=== PATIENT | female | born 1950 | race Caucasian/White ===

== ENCOUNTER 2016-05-21 15:13 | Emergency (ER) | payer BC ==
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
[2016-05-21] MEDS ORDERED: HYDROMORPHONE HCL 1 MG/ML CPJ IM ONE ×2 (15:45→15:47)
== END 2016-05-21 16:33 | disposition home or self-care (01) ==
LOC: ER 15:13
DX: G89.29 Other chronic pain (principal); M25.552 Pain in left hip
CPT/HCPCS: 99283 ×2; 96372; J1170

== ENCOUNTER 2016-07-11 00:39 | Emergency (ER) | payer BC ==
[2016-07-11] MEDS ORDERED: HYOSCYAMINE SULFATE ODT 0.125 MG TAB.SUBL SL ONE (00:42)
[2016-07-11] MEDS ORDERED: ONDANSETRON 4 MG ODT TABLET SL ONE (01:03)
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
[2016-07-11 01:28] LABS: INFLUENZA A NEGATIVE (NEGATIVE); INFLUENZA B NEGATIVE (NEGATIVE)
[2016-07-11] MEDS ORDERED: LORAZEPAM 2 MG/ML VIAL IV ONE (01:40)
[2016-07-11] MEDS ORDERED: DIAZEPAM 5 MG/1 ML TUBX IVP ONE (01:45)
[2016-07-11] MEDS: ONDANSETRON HCL IV 4 MG/2 ML VIAL IVP ONE ×2 (01:48→02:15)
[2016-07-11 02:10] LABS: BASO % 0.3 % (0-6); HEMATOCRIT 37.8 % (35.0-47.0); LYMPH % 9.6 % (16-45); MEAN CELL VOLUME 86.1 fl (81-97); MEAN CORPUSCULAR HEMOGLOBIN 29.6 pg (27-33); MEAN CORPUSCULAR HGB CONC 34.4 g/dl (32-36); MEAN PLATELET VOLUME 10.4 fl (7.4-10.4); PLATELET COUNT 236 K/uL (130-400); RED BLOOD COUNT 4.39 M/uL (3.80-5.40); RED CELL DISTRIBUTION WIDTH 13.9 % (11.5-14.5); WHITE BLOOD COUNT W/O DIFF 14.8 K/uL (4.2-12.2)
[2016-07-11 02:11] LABS: URINE APPEARANCE CLEAR; URINE BILIRUBIN NEGATIVE (NEGATIVE); URINE BLOOD SMALL (NEGATIVE); URINE COLOR YELLOW; URINE GLUCOSE (UA) NEGATIVE (NEGATIVE); URINE KETONE 15 mg/dL (NEGATIVE); URINE LEUKOCYTE ESTERASE NEGATIVE (NEGATIVE); URINE NITRITE NEGATIVE (NEGATIVE); URINE PROTEIN TRACE (NEGATIVE); URINE UROBILINOGEN 0.2 E.U./dL (0.20 - 1.00)
[2016-07-11 02:13] LABS: URINE BACTERIA NONE SEEN; URINE EPITHELIAL CELLS 0 - 2 (FEW); URINE WBC 0 - 2 (0-2/hpf)
[2016-07-11] MEDS ORDERED: PROMETHAZINE HCL 25 MG in 0.9 % SODIUM CHLORIDE 100ML 50 ML IVP ONE (02:18)
[2016-07-11] MEDS ORDERED: ASPIRIN 81 MG CHEWABLE TABLET PO ONE (02:18)
[2016-07-11 02:19] LABS: ALB/GLOB RATIO 1.7 (1.1-1.8); ALKALINE PHOSPHATASE 101 U/L (38-126); ALT/SGPT 29 U/L (9-52); AST/SGOT 19 U/L (14-36); BILIRUBIN,TOTAL 0.82 mg/dL (0.2-1.3); BLOOD UREA NITROGEN 10 mg/dL (7-17); CREATININE 0.6 mg/dL (0.52-1.04); EST GLOMERULAR FILTRATION RATE > 60 ml/min; GLUCOSE,RANDOM 134 mg/dL (70-110); LIPASE 32 U/L (23-300)
[2016-07-11 02:40] LABS: CREATINE PHOSPHOKINASE 35 U/L (30-135)
[2016-07-11 02:46] LABS: CKMB 0.2 ug/L (0-6); TROPONIN I < 0.012 ng/mL (0.00-0.034)
[2016-07-11] MEDS ORDERED: MORPHINE SULFATE 5 MG/ML PFS IVP ONE (03:14)
== END 2016-07-11 04:10 | disposition short-term general hospital (02) ==
LOC: ER 00:39
DX: R07.9 Chest pain, unspecified (principal); M79.1 Myalgia; R94.31 Abnormal electrocardiogram [ECG] [EKG]; R11.2 Nausea with vomiting, unspecified; R19.7 Diarrhea, unspecified; R06.02 Shortness of breath; I10 Essential (primary) hypertension; Z87.891 Personal history of nicotine dependence
CPT/HCPCS: 99285 ×2; 96374; 96375; 82550; 83690; 82553; 84484; 80053; 81001; 87400; 85027; 93005; 93010; J1980; J2405; J2270; J2550; J3360

== ENCOUNTER 2016-09-24 03:52 | Emergency (ER) | payer BC ==
[2016-09-24] MEDS ORDERED: 0.9 % SODIUM CHLORIDE 1,000 ML BAG IV ONE ×3 (04:11→05:28)
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
[2016-09-24] MEDS ORDERED: LORAZEPAM 2 MG/ML VIAL IV ONE (04:31)
[2016-09-24] MEDS ORDERED: ONDANSETRON HCL IV 4 MG/2 ML VIAL IVP ONE (04:34)
[2016-09-24 04:38] LABS: HEMATOCRIT 42.2 % (35.0-47.0); MEAN CELL VOLUME 85.1 fl (81-97); MEAN CORPUSCULAR HEMOGLOBIN 28.2 pg (27-33); MEAN CORPUSCULAR HGB CONC 33.2 g/dl (32-36); MEAN PLATELET VOLUME 10.9 fl (7.4-10.4); PLATELET COUNT 354 K/uL (130-400); RED BLOOD COUNT 4.96 M/uL (3.80-5.40); RED CELL DISTRIBUTION WIDTH 13.4 % (11.5-14.5); WHITE BLOOD COUNT W/O DIFF 16.8 K/uL (4.2-12.2)
[2016-09-24 04:47] LABS: ALBUMIN 4.9 gm/dL (3.5-5.0); ALKALINE PHOSPHATASE 132 U/L (38-126); ALT/SGPT 21 U/L (9-52); ANION GAP 13.7 (7-16); AST/SGOT 23 U/L (14-36); BILIRUBIN,TOTAL 1.03 mg/dL (0.2-1.3); BLOOD UREA NITROGEN 21 mg/dL (7-17); CARBON DIOXIDE 26.3 mmol/L (22-30); CREATININE 0.9 mg/dL (0.52-1.04); EST GLOMERULAR FILTRATION RATE > 60 ml/min; GLUCOSE,RANDOM 146 mg/dL (70-110); LIPASE 122 U/L (23-300); TOTAL PROTEIN 8.3 gm/dL (6.3-8.2)
[2016-09-24 04:58] LABS: URINE APPEARANCE CLEAR; URINE BILIRUBIN MODERATE (NEGATIVE); URINE BLOOD LARGE (NEGATIVE); URINE COLOR YELLOW; URINE GLUCOSE (UA) NEGATIVE (NEGATIVE); URINE KETONE 40 mg/dL (NEGATIVE); URINE LEUKOCYTE ESTERASE NEGATIVE (NEGATIVE); URINE NITRITE NEGATIVE (NEGATIVE)
[2016-09-24 05:01] LABS: URINE BACTERIA NONE SEEN; URINE EPITHELIAL CELLS 0 - 2 (FEW); URINE PROTEIN 300 mg/dL (NEGATIVE); URINE WBC 0 - 2 (0-2/hpf)
[2016-09-24 05:04] LABS: AMPHETAMINE SCREEN URINE NOT DETECTED; BARBITURATE SCREEN URINE NOT DETECTED; BENZODIAZEPINE SCREEN URINE DETECTED; COCAINE SCREEN URINE NOT DETECTED; METHADONE SCREEN URINE NOT DETECTED; METHAMPHETAMINE SCREEN NOT DETECTED; OPIATE SCREEN URINE DETECTED; OXYCODONE SCREEN URINE NOT DETECTED; PHENCYCLIDINE SCREEN URINE NOT DETECTED; PROPOXYPHENE SCREEN URINE NOT DETECTED; THC SCREEN URINE DETECTED; TRICYCLIC ANTIDEPRESSANT SCRN NOT DETECTED
[2016-09-24] MEDS ORDERED: DIAZEPAM 5 MG/1 ML TUBX IVP ONE (05:28)
[2016-09-24] MEDS ORDERED: MORPHINE SULFATE 5 MG/ML PFS IVP ONE (06:13)
== END 2016-09-24 07:10 | disposition short-term general hospital (02) ==
LOC: ER 03:52
DX: R79.89 Other specified abnormal findings of blood chemistry (principal); E86.0 Dehydration; G43.A1 Cyclical vomiting, in migraine, intractable; I10 Essential (primary) hypertension; Z87.891 Personal history of nicotine dependence
CPT/HCPCS: 99285 ×2; 96374; 96375; 83690; 80076; 82553; 84484; 80048; 81001; 80305; 85027; 93005; 93010; J2405; J2060; J2270; J3360; J7030

== ENCOUNTER 2017-05-10 12:32 | Emergency (ER) | payer BC, MEDICARE ==
[2017-05-10] MEDS ORDERED: ONDANSETRON HCL IV 4 MG/2 ML VIAL IV ONE (13:16)
[2017-05-10] MEDS ORDERED: 0.9 % SODIUM CHLORIDE 1,000 ML BAG IV ONE (13:16)
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
[2017-05-10 13:57] LABS: BASO % 0.6 % (0-6); EOS % 1.3 % (0-6); GRAN % 57.4 % (47-80); HEMATOCRIT 35.8 % (35.0-47.0); HEMOGLOBIN 11.6 gm/dl (11.6-16.0); LYMPH % 34.5 % (16-45); MEAN CELL VOLUME 86.9 fl (81-97); MEAN CORPUSCULAR HEMOGLOBIN 28.2 pg (27-33); MEAN CORPUSCULAR HGB CONC 32.4 g/dl (32-36); MEAN PLATELET VOLUME 10.4 fl (7.4-10.4); MONO % 6.2 % (0-9); PLATELET COUNT 261 K/uL (130-400); RED BLOOD COUNT 4.12 M/uL (3.80-5.40); RED CELL DISTRIBUTION WIDTH 13.7 % (11.5-14.5); WHITE BLOOD COUNT W/O DIFF 6.8 K/uL (4.2-12.2)
[2017-05-10] MEDS ORDERED: MORPHINE SULFATE 5 MG/ML PFS IVP ONE ×2 (14:39→15:32)
[2017-05-10 14:52] LABS: URINE APPEARANCE CLEAR; URINE BILIRUBIN NEGATIVE (NEGATIVE); URINE BLOOD NEGATIVE (NEGATIVE); URINE COLOR YELLOW; URINE GLUCOSE (UA) NEGATIVE (NEGATIVE); URINE KETONE NEGATIVE (NEGATIVE); URINE LEUKOCYTE ESTERASE NEGATIVE (NEGATIVE); URINE NITRITE NEGATIVE (NEGATIVE); URINE PROTEIN NEGATIVE (NEGATIVE); URINE UROBILINOGEN 0.2 E.U./dL (0.20 - 1.00)
[2017-05-10 15:03] LABS: BLOOD UREA NITROGEN 17 mg/dL (8-23)
[2017-05-10 15:04] LABS: CREATININE 0.8 mg/dL (0.5-0.9); EST GLOMERULAR FILTRATION RATE > 60 mL/min
[2017-05-10 15:06] LABS: GLUCOSE,RANDOM 97 mg/dL (74-109)
--- NOTE | 2017-05-10 20:51 | CT SCAN REPORT ---
EXAM: CT SCAN ABDOMEN/PELVIS WO CONTRAST HISTORY: RIGHT FLANK PAIN FOR A DAY, 30 LB WEIGHT LOSS IN A YEAR. HYSTERECTOMY. TECHNIQUE: Axial CT scan of the abdomen and pelvis performed without oral or IV contrast. COMPARISON: CT abdomen and pelvis 11/14/13. FINDINGS: Surgical clips in the gallbladder fossa as before consistent with cholecystectomy. Uterus not identified consistent with the surgical history as well. No intrarenal calculi identified on either side. There is no hydronephrosis or hydroureter on the left with the left ureter demonstrating no ureteral calculus and no bladder calculus evident. On the right, there is very minimal, if any, hydronephrosis but there is mild hydroureter on the right, which leads to a calcification in the right mid ureter measuring approximately 4.3 mm in diameter and on the coronal image measures about 6.2 mm in length consistent with a right mid ureteral calculus causing relatively mild obstruction on the right at this point. Distal to this, no additional or distal right ureteral calculus seen. Evaluation of the bowel and viscera is very limited without oral or IV contrast. Given this limitation, no definite hepatic, splenic, adrenal, pancreatic, or renal mass identified. No appendicitis identified. Some calcifications in the subcutaneous tissues of the upper gluteal regions bilaterally also noted previously and probably representing injection granulomas. No free intraperitoneal air or free intraperitoneal fluid identified. Prominent facet joint arthropathy in the lower lumbar spine. Multilevel degenerative disc disease in the lumbar spine as well as in the lower thoracic spine. There is a sharply demarcated tubular radiolucency extending from the left femoral head through the femoral neck and a rounded radiolucency in the greater trochanter on the left with loss of the overlying cortex, likely all postoperative in nature related to a prior intramedullary nikolai and compression screw that has subsequently been removed. The full inferior extent of this well-circumscribed defect in the upper femoral shaft is not included on this pelvis CT. If there is no history of prior orthopedic hardware with subsequent removal in the left hip, plain-film series would be suggested. IMPRESSION: 1. APPEARANCE CONSISTENT WITH A RIGHT MID URETERAL CALCULUS DESCRIBED ABOVE WITH ASSOCIATED MILD HYDROURETER BUT WITH VERY LITTLE, IF ANY, ASSOCIATED HYDRONEPHROSIS ON THE RIGHT. 2. NO OTHER URINARY TRACT CALCULI IDENTIFIED. 3. POST-OP CHOLECYSTECTOMY AND HYSTERECTOMY. 4. DEGENERATIVE CHANGE IN THE SPINE. PROBABLE POST-OP CHANGE LEFT HIP, DESCRIBED ABOVE. JOB NUMBER: [id number] [facility]
== END 2017-05-10 16:10 | disposition home or self-care (01) ==
LOC: ER 12:32
DX: N20.1 Calculus of ureter (principal); Z87.442 Personal history of urinary calculi; I10 Essential (primary) hypertension; Z87.891 Personal history of nicotine dependence
CPT/HCPCS: 74176; 80048; 81003; 85025; 86140; 96374; 96375; 96376; 99284; J2405; J7030

== ENCOUNTER 2017-06-14 12:11 | Day surgery (SDC) | payer BC, MEDICARE ==
[2017-06-14] MEDS ORDERED: FENTANYL PF 100MCG/2ML VIAL IV ONE (12:12)
[2017-06-14] MEDS ORDERED: LIDOCAINE 2% MDV (20MG/ML) 20ML VIAL IV ONE (12:12)
[2017-06-14] MEDS ORDERED: PROPOFOL 10 MG/ML VIAL IV ONE (12:12)
--- NOTE | 2017-06-17 09:10 | Operative Note ---
DATE OF SURGERY: 06/14/2017 SURGEON: Kenzie Cummings MD OPERATION: 1. ESOPHAGOGASTRODUODENOSCOPY. 2. COLONOSCOPY. INDICATIONS: This is a 67-year-old female with history of epigastric pain and colon polyps who presented for both esophagogastroduodenoscopy and colonoscopy. POSTOPERATIVE DIAGNOSES: 1. Normal esophagus. 2. Mild gastritis. 3. Normal duodenum. 4. Normal colon with no neoplastic or ulcerative lesions. ANESTHESIA: Sedation is per Anesthesia. Pulse oximetry was monitored throughout the procedure to maintain O2 saturation of 90% or greater. Supplemental oxygen was administered via nasal cannula. Cardiac and vital signs were monitored throughout the duration of the procedure, and they were stable. The procedures of esophagogastroduodenoscopy and colonoscopy and risks and alternatives of the procedures, including the risk of bleeding and perforation, among others, were explained to the patient who voiced understanding and agreed to have the procedures done. Physical examination was performed, and the patient was found stable for sedation. PROCEDURE: The patient was placed in the left lateral position. Sedation was initiated. A plastic bite block was inserted into the oral cavity. The Olympus [id number] gastroscope was introduced into the oral cavity and advanced to the proximal esophagus without difficulty. The esophageal mucosa was carefully examined upon introduction of the gastroscope. The proximal and mid and distal esophageal mucosa appeared normal. The gastroscope was then advanced into the stomach, and surveillance of the stomach revealed normal gastric fundus, body, and antrum. The gastroscope was then advanced to the descending duodenum without difficulty. The duodenal bulb and descending duodenum appeared normal. The gastroscope was then withdrawn while carefully examining the gastric and esophageal mucosa. No other lesions noted. Multiple duodenal and gastric biopsies were obtained. The patient remained with stable vital signs and was repositioned for colonoscopy. Digital rectal exam was performed and showed some mild external hemorrhoids with no palpable rectal masses. An Olympus PCF-180AL colonoscope was then inserted into the rectum under direct visualization. It was advanced to the cecum without difficulty. The ileocecal valve and appendiceal orifice were identified and photographed. The colonic mucosa was carefully examined upon introduction of the colonoscope. There were no lesions noted. The colonoscope was then withdrawn while carefully examining the colonic mucosal surfaces. No lesions were noted. In the rectum, retroflexion was performed and grade 1 internal hemorrhoids were noted. The colonoscope was then withdrawn and the procedures were terminated. The patient tolerated the procedures well without any immediate complications. He remained with stable vital signs and was transferred to the recovery room. RECOMMENDATIONS: 1. The patient should continue on a high-fiber diet. 2. The patient is to have a repeat colonoscopy for surveillance in 5 years. Thank you for allowing me to participate in the care of your patient. CC: Zaida MCNULTY
== END 2017-06-14 15:00 | disposition home or self-care (01) ==
LOC: HOP 12:11
PROVIDERS: ATTEND Internal Medicine Gastroenterology
DX: R10.13 Epigastric pain (principal); Z86.010 Personal history of colon polyps; K29.70 Gastritis, unspecified, without bleeding; I10 Essential (primary) hypertension; E78.00 Pure hypercholesterolemia, unspecified; K64.0 First degree hemorrhoids
CPT/HCPCS: 43235; 00813; G0105; J3010

== ENCOUNTER 2017-08-16 15:52 | Emergency (ER) | payer BC, MEDICARE ==
[2017-08-16] MEDS ORDERED: 0.9 % SODIUM CHLORIDE 1000ML 1,000 ML IV PRN (17:23)
[2017-08-16 17:27] LABS: URINE APPEARANCE CLEAR; URINE BILIRUBIN NEGATIVE (NEGATIVE); URINE BLOOD NEGATIVE (NEGATIVE); URINE COLOR YELLOW; URINE GLUCOSE (UA) NEGATIVE (NEGATIVE); URINE KETONE TRACE (NEGATIVE); URINE LEUKOCYTE ESTERASE NEGATIVE (NEGATIVE); URINE NITRITE NEGATIVE (NEGATIVE); URINE PROTEIN NEGATIVE (NEGATIVE); URINE UROBILINOGEN 0.2 E.U./dL (0.20 - 1.00)
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
[2017-08-16] MEDS ORDERED: HYDROMORPHONE HCL 2 MG/ML VIAL IVP ONE (17:32)
[2017-08-16] MEDS ORDERED: ONDANSETRON HCL IV 4 MG/2 ML VIAL IVP ONE (17:35)
[2017-08-16 18:51] LABS: HEMATOCRIT 39.3 % (35.0-47.0); HEMOGLOBIN 12.8 gm/dl (11.6-16.0); MEAN CELL VOLUME 91.2 fl (81-97); MEAN CORPUSCULAR HEMOGLOBIN 29.7 pg (27-33); MEAN CORPUSCULAR HGB CONC 32.6 g/dl (32-36); MEAN PLATELET VOLUME 10.1 fl (7.4-10.4); PLATELET COUNT 227 K/uL (130-400); RED BLOOD COUNT 4.31 M/uL (3.80-5.40); RED CELL DISTRIBUTION WIDTH 13.9 % (11.5-14.5)
[2017-08-16 19:01] LABS: BLOOD UREA NITROGEN 18 mg/dL (8-23); CREATININE 0.8 mg/dL (0.5-0.9); EST GLOMERULAR FILTRATION RATE > 60 mL/min
[2017-08-16 19:02] LABS: TOTAL PROTEIN 6.9 g/dL (6.6-8.7)
[2017-08-16 19:04] LABS: GLUCOSE,RANDOM 117 mg/dL (74-109); PLATELET ESTIMATE NORMAL (NORMAL)
[2017-08-16 19:06] LABS: ALT/SGPT 21 U/L (<33)
[2017-08-16 19:07] LABS: ALBUMIN 4.3 g/dL (4.0-5.0); ALKALINE PHOSPHATASE 113 U/L (35-104); AST/SGOT 23 U/L (10.0-35.0); LIPASE 14 U/L (13-60)
[2017-08-16 19:08] LABS: BILIRUBIN,DIRECT < 0.2 mg/dL (0-0.3)
[2017-08-16] MEDS ORDERED: HYDROCODONE/APAP 7.5/325MG TABLET PO ONE (19:56)
--- NOTE | 2017-08-18 12:16 | CT SCAN REPORT ---
DATE: 08/16/2017. EXAM: CT SCAN OF THE ABDOMEN AND PELVIS. HISTORY: The patient has left-sided flank pain. TECHNIQUE: Serial axial CT scan of the abdomen and pelvis was performed at 2.5 mm intervals from the dome of the diaphragm of of the pubic symphysis without the use of intravenous or oral contrast. COMPARISON: Comparison CT scan of the abdomen and pelvis dated 05/10/2017 is provided. FINDINGS: The lung windows of the lung bases demonstrate no CT evidence of a focal infiltrate or pleural effusion. The visualized heart size and contour is within normal limits. The liver, spleen, bilateral adrenal glands, and pancreas are unremarkable. Cholecystectomy clips are noted within the right upper quadrant of the abdomen. The bilateral kidneys demonstrate no CT evidence of hydronephrosis or hydroureter. There is cortical contour variation of the right kidney which may result in chronic infections. No renal calculi are noted. Within the mid right ureter, there are findings suspicious for a 2.5 mm calculus which is unchanged in position with respect to the prior CT scan. Again this calculus does not create significant hydroureter. The contour and caliber of the noncontrasted abdominal aorta is within normal limits. There is no CT evidence of retroperitoneal, pelvic, or inguinal lymphadenopathy. The bowel gas pattern is nonspecific and nonobstructive. There is no CT evidence of free intraperitoneal fluid or free intraperitoneal air. Calcifications are identified in the bilateral gluteal subcutaneous fat which may be related to prior injections. This finding is unchanged with respect to the prior CT scan. The urinary bladder is decompressed. The uterus is absent. The bone windows demonstrate lucency within the left femoral head and neck and proximal femoral diaphysis which is unchanged with respect to the prior CT scan. This finding is likely the result of removal of hardware. A single epidural cyst is identified within the right F3 neural foramen. Multilevel advanced degenerative disc disease of the lumbar spine is noted. IMPRESSION: 1. A 2.5 MM CALCULUS WITHIN THE MID RIGHT URETER IS UNCHANGED IN LOCATION WITH RESPECT TO THE PRIOR CT SCAN. THIS CREATES NO SIGNIFICANT HYDRONEPHROSIS OR HYDROURETER. 2. OTHERWISE NO CT EVIDENCE OF AN ACUTE INTRAABDOMINAL PROCESS. JOB NUMBER: [id number] [facility]
== END 2017-08-16 20:15 | disposition home or self-care (01) ==
LOC: ER 15:52
DX: R10.31 Right lower quadrant pain (principal); R10.32 Left lower quadrant pain; R11.11 Vomiting without nausea; R07.81 Pleurodynia; Z87.891 Personal history of nicotine dependence; Z87.442 Personal history of urinary calculi
CPT/HCPCS: 99284 ×2; 96374; 96375; 83690; 80076; 80048; 81003; 85027; 74176; J2405; J1170

== ENCOUNTER 2017-09-17 15:08 | Emergency (ER) | payer BC ==
[2017-09-17] MEDS ORDERED: ONDANSETRON HCL IV 4 MG/2 ML VIAL IVP ONE (15:34)
[2017-09-17] MEDS ORDERED: HYDROMORPHONE HCL 2 MG/ML VIAL IVP ONE (15:35)
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
[2017-09-17 16:59] LABS: URINE APPEARANCE CLEAR; URINE BILIRUBIN NEGATIVE (NEGATIVE); URINE BLOOD NEGATIVE (NEGATIVE); URINE COLOR YELLOW; URINE GLUCOSE (UA) NEGATIVE (NEGATIVE); URINE KETONE NEGATIVE (NEGATIVE); URINE LEUKOCYTE ESTERASE NEGATIVE (NEGATIVE); URINE NITRITE NEGATIVE (NEGATIVE); URINE PROTEIN NEGATIVE (NEGATIVE); URINE UROBILINOGEN 0.2 E.U./dL (0.20 - 1.00)
[2017-09-17 16:59] LABS: BASO % 0.3 % (0-6); EOS % 0.8 % (0-6); GRAN % 57.2 % (47-80); HEMATOCRIT 39.5 % (35.0-47.0); HEMOGLOBIN 12.8 gm/dl (11.6-16.0); LYMPH % 35.9 % (16-45); MEAN CELL VOLUME 89.2 fl (81-97); MEAN CORPUSCULAR HEMOGLOBIN 28.9 pg (27-33); MEAN CORPUSCULAR HGB CONC 32.4 g/dl (32-36); MEAN PLATELET VOLUME 9.9 fl (7.4-10.4); MONO % 5.8 % (0-9); PLATELET COUNT 254 K/uL (130-400); RED BLOOD COUNT 4.43 M/uL (3.80-5.40); RED CELL DISTRIBUTION WIDTH 14.1 % (11.5-14.5); WHITE BLOOD COUNT W/O DIFF 6.5 K/uL (4.2-12.2)
[2017-09-17 17:18] LABS: ALB/GLOB RATIO 1.7 (1.1-1.8); ALBUMIN 4.5 g/dL (4.0-5.0); ALKALINE PHOSPHATASE 159 U/L (35-104); ALT/SGPT 17 U/L (<33); AST/SGOT 17 U/L (10.0-35.0); BLOOD UREA NITROGEN 11 mg/dL (8-23); CREATININE 0.7 mg/dL (0.5-0.9); EST GLOMERULAR FILTRATION RATE > 60 mL/min; GLUCOSE,RANDOM 84 mg/dL (74-109); LIPASE 19 U/L (13-60); TOTAL PROTEIN 7.1 g/dL (6.6-8.7)
== END 2017-09-17 17:46 | disposition home or self-care (01) ==
LOC: ER 15:08
DX: G89.29 Other chronic pain (principal); M54.5 Low back pain; R10.32 Left lower quadrant pain; R51 Headache; N20.0 Calculus of kidney; Z87.891 Personal history of nicotine dependence
CPT/HCPCS: 99284 ×2; 96374; 96375; 83690; 85025; 80053; 81003; J2405; J1170

== ENCOUNTER 2017-10-02 17:03 | Emergency (ER) | payer BC ==
[2017-10-02] MEDS ORDERED: HYDROMORPHONE HCL 2 MG/ML VIAL IM ONE (17:40)
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
[2017-10-02 18:14] LABS: BASO % 0.7 % (0-6); EOS % 2.1 % (0-6); GRAN % 45.9 % (47-80); HEMATOCRIT 39.5 % (35.0-47.0); HEMOGLOBIN 12.9 gm/dl (11.6-16.0); LYMPH % 45.1 % (16-45); MEAN CELL VOLUME 90.2 fl (81-97); MEAN CORPUSCULAR HEMOGLOBIN 29.5 pg (27-33); MEAN CORPUSCULAR HGB CONC 32.7 g/dl (32-36); MEAN PLATELET VOLUME 10.3 fl (7.4-10.4); MONO % 6.2 % (0-9); PLATELET COUNT 230 K/uL (130-400); RED BLOOD COUNT 4.38 M/uL (3.80-5.40); RED CELL DISTRIBUTION WIDTH 13.9 % (11.5-14.5); WHITE BLOOD COUNT W/O DIFF 7.1 K/uL (4.2-12.2)
[2017-10-02 18:19] LABS: URINE APPEARANCE SL CLOUDY; URINE BILIRUBIN NEGATIVE (NEGATIVE); URINE BLOOD NEGATIVE (NEGATIVE); URINE COLOR YELLOW; URINE GLUCOSE (UA) NEGATIVE (NEGATIVE); URINE KETONE NEGATIVE (NEGATIVE); URINE LEUKOCYTE ESTERASE TRACE (NEGATIVE); URINE NITRITE NEGATIVE (NEGATIVE); URINE PROTEIN NEGATIVE (NEGATIVE); URINE UROBILINOGEN 0.2 E.U./dL (0.20 - 1.00)
[2017-10-02 18:22] LABS: BLOOD UREA NITROGEN 21 mg/dL (8-23); CREATININE 0.8 mg/dL (0.5-0.9); EST GLOMERULAR FILTRATION RATE > 60 mL/min
[2017-10-02 18:25] LABS: GLUCOSE,RANDOM 91 mg/dL (74-109)
[2017-10-02 18:30] LABS: URINE BACTERIA FEW; URINE RBC 0 - 2 (NONE SEEN); URINE SQUAMOUS EPITHELIAL CELL 0 - 2 /hpf
== END 2017-10-02 19:01 | disposition home or self-care (01) ==
LOC: ER 17:03
DX: M54.5 Low back pain (principal); N20.1 Calculus of ureter; Z87.891 Personal history of nicotine dependence
CPT/HCPCS: 99283; 96372; 99284; 85025; 80048; 81001; J1170

== ENCOUNTER 2018-02-15 12:35 | Emergency (ER) | payer BC ==
[2018-02-15] MEDS ORDERED: ACETAMINOPHEN 1,000 MG/100 ML BTL IVPB ONE (12:54)
[2018-02-15] MEDS ORDERED: 0.9 % SODIUM CHLORIDE 1,000 ML BAG IV ONE (12:54)
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
[2018-02-15 13:21] LABS: URINE APPEARANCE CLEAR; URINE BILIRUBIN NEGATIVE (NEGATIVE); URINE BLOOD NEGATIVE (NEGATIVE); URINE COLOR YELLOW; URINE GLUCOSE (UA) NEGATIVE (NEGATIVE); URINE KETONE NEGATIVE (NEGATIVE); URINE LEUKOCYTE ESTERASE NEGATIVE (NEGATIVE); URINE NITRITE POSITIVE (NEGATIVE); URINE PROTEIN NEGATIVE (NEGATIVE); URINE UROBILINOGEN 0.2 E.U./dL (0.20 - 1.00)
[2018-02-15 13:22] LABS: BASO % 0.7 % (0-6); EOS % 1.1 % (0-6); GRAN % 63.4 % (47-80); HEMATOCRIT 41.2 % (35.0-47.0); HEMOGLOBIN 13.4 gm/dl (11.6-16.0); LYMPH % 30.4 % (16-45); MEAN CELL VOLUME 88.6 fl (81-97); MEAN CORPUSCULAR HEMOGLOBIN 28.8 pg (27-33); MEAN CORPUSCULAR HGB CONC 32.5 g/dl (32-36); MEAN PLATELET VOLUME 9.9 fl (7.4-10.4); MONO % 4.4 % (0-9); PLATELET COUNT 274 K/uL (130-400); RED BLOOD COUNT 4.65 M/uL (3.80-5.40); RED CELL DISTRIBUTION WIDTH 13.8 % (11.5-14.5); WHITE BLOOD COUNT W/O DIFF 8.5 K/uL (4.2-12.2)
[2018-02-15 13:29] LABS: URINE BACTERIA FEW; URINE EPITHELIAL CELLS 0 - 2 (FEW); URINE RBC NONE SEEN (NONE SEEN); URINE WBC NONE SEEN (0-2/hpf)
[2018-02-15] MEDS ORDERED: ONDANSETRON HCL IV 4 MG/2 ML VIAL IVP ONE (13:33)
[2018-02-15] MEDS ORDERED: CEFTRIAXONE SODIUM 1 GM in 0.9 % SODIUM CHLORIDE 100ML 100 ML IVPB ONE (13:43)
[2018-02-15] MEDS ORDERED: MORPHINE SULFATE 10 MG/ML VIAL IVP ONE (13:58)
== END 2018-02-15 15:00 | disposition home or self-care (01) ==
LOC: ER 12:35
DX: N39.0 Urinary tract infection, site not specified (principal); R10.2 Pelvic and perineal pain; R10.31 Right lower quadrant pain; I10 Essential (primary) hypertension; Z87.891 Personal history of nicotine dependence; Z87.442 Personal history of urinary calculi
CPT/HCPCS: 99284 ×2; 96365; 96366; 96375; 96361; 96367; 85025; 80048; 81001; J2405; J2270; J7030